=== PATIENT | female | born 1960 | race Caucasian/White ===

== ENCOUNTER 2023-03-08 12:41 | Emergency (ER) | payer OTHER, SELFPAY ==
[2023-03-08 12:44] VITALS: BP 130/89; PULSE 75; RESP 18; TEMP 36.6; O2SAT 95; BMI 27.4
--- NOTE | 2023-03-08 13:09 | EXP.UTC ---
Discharge Plan Disposition Patient Disposition: Home, Self-Care Condition: Good Prescriptions Prescriptions: New cephalexin 500 mg capsule 500 mg PO QID Qty: 40 0RF mupirocin 2 % ointment 1 applic topical TID 7 Days Qty: 15 0RF Referrals Follow up/Referrals: Sammy Mendosa MD [Primary Care Provider] - See instructions Activity Restrictions/Add. Instructions Additional Instructions/Restrictions: Keep the affected area clean and dry. Follow up with your regular doctor. Take the antibiotics as directed and apply the topical antibiotics as directed. Apply warm wet compresses to the affected area three or four times per day. GO TO THE ER FOR ANY WORSENING SYMPTOMS Clinical Impressions Clinical Impression: Abscess of skin Instructions Patient Instructions: Boil Discharge ED Provider: Seven Adkins [facility] General Stated complaint: Lump on L Leg Time Seen by Provider: 03/08/23 13:08 History of Present Illness Provider Complaint: She states that she has had a tender swollen area on the inside of her left thigh for the past 3 days. She denies any fever/chills. Related Data Previous Rx's Medication Instructions Recorded cephalexin 500 mg capsule 500 mg PO QID #40 caps 03/08/23 mupirocin 2 % topical ointment 1 applic topical TID 7 days #15 03/08/23 grams Allergies Allergy/AdvReac Type Severity Reaction Status Date / Time No Known Allergies Allergy Verified 03/08/23 13:11 [facility] Disclaimer: The information contained in this section may have been updated after the patient was seen, as this information can be updated by other users. Social History Smoking Status: Never smoker alcohol intake: never current occupational status: retired Travel in the last 8 weeks: None ROS Obtained: Yes All systems reviewed & no additional complaints except as documented Constitutional Constitutional: Denies chills and Denies fever(s) Eyes Eyes: Denies eye discharge ENT Ears, Nose, Mouth, and Throat: Denies dizziness, Denies otalgia and Denies sore throat Cardiovascular Cardiovascular: Denies chest pain Respiratory Respiratory: Denies shortness of breath, Denies chest congestion, Denies cough, Denies stridor and Denies wheezing Gastrointestinal Gastrointestingal: Denies nausea or vomiting Musculoskeletal Musculoskeletal: Reports system reviewed and no additional complaints, except as documented and Denies arthralgias Integumentary/Breasts Skin/Breast: Reports as per HPI Neurologic Neurologic: Denies dizziness and Denies paresthesias Allergic/Immunologic Allergic/Immunologic: Denies wheezing Physical Exam General General appearance: alert and in no apparent distress Head Head exam: atraumatic, normocephalic and normal inspection Eye Eye exam: Present normal appearance, PERRL and EOMI ENT ENT exam: Present normal exam, normal oropharynx, mucous membranes moist, TM's normal bilaterally and normal external ear exam Neck Neck exam: Present normal inspection, full ROM and trachea midline; Absent meningismus or lymphadenopathy Chest Chest inspection: Present normal inspection and symmetric chest wall rise; Absent tenderness Respiratory Respiratory exam: Present normal lung sounds bilaterally; Absent respiratory distress Cardiovascular Cardiovascular exam: Present regular rate and normal rhythm; Absent JVD Abdominal Exam Abdominal exam: Present soft and normal bowel sounds; Absent distention, tenderness or guarding Extremities Exam Extremities exam: Present normal inspection, full ROM and normal capillary refill; Absent calf tenderness Back Exam Back exam: Present normal inspection; Absent tenderness Neurological Exam Neurological exam: Present alert and oriented X3 Psychiatric Psychiatric exam: Present normal affect and normal mood Skin Skin exam: Present erythema (there is an area of redness that measures 2 cm diameter on her left upper inter thigh. there is no open wound or dr
[2023-03-08 13:45] VITALS: BP 130/89; PULSE 75; RESP 18; TEMP 36.6; O2SAT 95
== END 2023-03-08 13:47 | disposition home or self-care (01) ==
PROVIDERS: Emergency Provider Nurse Practitioner Family; PCP Family Medicine
DX: L02.416 Cutaneous abscess of left lower limb (principal)
CPT/HCPCS: 99204; 99212; G0463

== ENCOUNTER 2024-02-07 15:00 | Outpatient (RCR) | payer MEDICARE, SELFPAY | END 2024-02-16 16:55 | disposition home or self-care (01) | LOC: PT 15:00 | PROVIDERS: Visit Provider Psychiatry & Neurology Neurology | DX: G20.A1 Parkinson's disease without dyskinesia, without mention of fluctuations (principal) | CPT/HCPCS: 97110; 97112; 97163; 97164; 97530 ==

== ENCOUNTER 2024-04-13 13:29 | Emergency (ER) | payer MEDICARE, SELFPAY ==
[2024-04-13 13:46] VITALS: BP 165/88; PULSE 75; RESP 18; TEMP 36.9; O2SAT 96; BMI 27.4
--- NOTE | 2024-04-13 13:50 | ED_ITS ---
Discharge Plan Disposition Patient Disposition: Home, Self-Care Condition: Good Prescriptions Prescriptions: New dextromethorphan polistirex [Delsym 12 hour] 30 mg/5 mL suspension,extended rel 12 hr 10 ml PO Q12H PRN (Reason: cough) Qty: 89 0RF No Action cephalexin 500 mg capsule 500 mg PO QID Qty: 40 0RF mupirocin 2 % ointment 1 applic topical TID 7 Days Qty: 15 0RF Referrals Follow up/Referrals: Provider,Referral, MD [Primary Care Provider] - See instructions Activity Restrictions/Add. Instructions Additional Instructions/Restrictions: *Monitor Temp, Over the counter Motrin or Tylenol as directed/as needed Tylenol every 4 hours and Motrin every 6 hours (as long as your family doctor has told you that you can take it) for fever or pain. and straight to ER if unable to lower temp less than 101.0 after medication given *Warm salt water gargles may help to soothe the throat *Throat Lozenges? *Warm fluids like tea with honey may help to soothe the throat? *Sleep elevated *Humidifier/Vaporizer Follow up IMMEDIATELY for new or worsening symptoms or no Noticeable improvement over the next 48-72 hours. 911 for difficulty breathing or swallowing You were tested for today for Upper Respiratory Panel with COVID19 your test result should be back in the next 24hours, you may check your results on the [facility] [employer] [facility] Clinical Impressions Clinical Impression: Viral syndrome Instructions Patient Instructions: Cough, DI for Viral Syndrome Print Language Print Language: Syriac Discharge ED Provider: Nikkie Schmidt [facility] – [place], [place] HPI General Stated complaint: cough Mode of Arrival: Ambulatory Source of Information: Patient Limitations: No Limitations Time Seen by Provider: 04/13/24 13:50 Description of Symptoms (Recalled from Triage Doc. by RN): Complaint of cough and chest congestion that started yesterday. States she was exposed to COVID and would like to be tested. HEENT Symptoms (Recalled from RN notes): Yes Resp Symptoms (Recalled from RN notes): No Skin Symptoms (Recalled from RN notes): No MS Symptoms (Recalled from RN notes): No Functional Status (Recalled from RN notes): wnl History of Present Illness Provider Complaint: Patient states that she was around someone earlier in the week that tested positive for COVID and then yesterday she started with sympotms, States that she has been having cough and body aches, and chills so today she came in wanting to get tested for COVID Related Data Previous Rx's ?Medication ?Instructions ?Recorded cephalexin 500 mg capsule 500 mg PO QID #40 caps 03/08/23 mupirocin 2 % topical ointment 1 applic topical TID 7 days #15 03/08/23 grams dextromethorphan polistirex 30 10 ml PO Q12H PRN cough #89 mL 04/13/24 mg/5 mL oral susp ext.release 12hr (Delsym 12 hour) Allergies Allergy/AdvReac Type Severity Reaction Status Date / Time iv dye Allergy Uncoded 04/13/24 13:49 Worker's Comp Is this a Worker's Comp case?: No PFSH PFS Disclaimer: The information contained in this section may have been updated after the patient was seen, as this information can be updated by other users. Social History (Updated 03/08/23 @ 14:23 by Seven Adkins APRN) Smoking Status: Never smoker alcohol intake: never current occupational status: retired Travel in the last 8 weeks: None ROS Obtained: Yes All systems reviewed & no additional complaints except as documented and Yes Systems reviewed as appropriate & no additional complaints except as documented Constitutional Constitutional: Reports system reviewed and no additional complaints, except as documented, Reports as per HPI, Reports body ache, Reports chills and Reports headache(s) ENT Ears, Nose, Mouth, and Throat: Reports system reviewed and no additional complaints, except as documented, Reports as per HPI and Reports headache(s) Cardiovascular Cardiovascular: Reports system reviewed and no additional complaints, except as documented and Reports as per HPI Respiratory Respiratory: Reports system reviewed and no additional complaints, except as documented, Reports as per HPI and Reports cough Gastrointestinal Gastrointestingal: Reports system reviewed and no additional complaints, except as documented and as per HPI Neurologic Neurologic: Reports headache(s) Physical Exam General General appearance: alert and in no apparent distress ENT ENT exam: Present mucous membranes moist Expanded ENT Exam Nose exam: Absent sinus tenderness Respiratory Respiratory exam: Present normal lung sounds bilaterally; Absent respiratory distress or wheezes Cardiovascular Cardiovascular exam: Present regular rate, normal rhythm and normal heart sounds Neurological Exam Neurological exam: Present alert, oriented X3 and normal gait Medical Decision Making Zane Inquiry Pt receiving controlled substance: No Zane was queried for this patient: No Vital Signs: 04/13/24 13:46 Temperature 98.4 F Temperature Source Oral Pulse Rate [Radial] 75 Respiratory Rate 18 Blood Pressure [Right Arm] 165/88 H Blood Pressure Mean [Right Arm] 113 Blood Pressure Source [Right Arm] Automatic Cuff Blood Pressure Position [Right Arm] Sitting 02 Sat by Pulse Oximetry 96 Oxygen Delivery Method Room Air Orders (Tests/Meds): ORDERS Category Date Time Status Rapid PCR Covid and Flu A/B Stat Lab 04/13/24 13:44 Ordered
[2024-04-13 13:51] LABS: Influenza A, PCR Not Detected (NotDetected); Influenza B, PCR Not Detected (NotDetected)
[2024-04-13 13:58] VITALS: BP 165/88; PULSE 75; RESP 18; TEMP 36.9; O2SAT 96
[2024-04-13 14:33] LABS: Coronavirus 19, PCR Detected (NotDetected)
== END 2024-04-13 13:59 | disposition home or self-care (01) ==
PROVIDERS: Emergency Provider Nurse Practitioner
DX: U07.1 COVID-19 (principal); R05.9 Cough, unspecified; R68.83 Chills (without fever); M79.18 Myalgia, other site
CPT/HCPCS: 87636; 99212; 99214; G0463

== ENCOUNTER 2024-10-15 09:30 | Outpatient (CLI) | payer MEDICARE, SELFPAY | END 2024-10-15 23:59 | disposition home or self-care (01) | LOC: LAB.DROPOF 10-17 10:24 | PROVIDERS: PCP Family Medicine; Visit Provider Family Medicine | DX: N39.0 Urinary tract infection, site not specified (principal); R39.9 Unspecified symptoms and signs involving the genitourinary system | CPT/HCPCS: 87086; 87088; 87186 ==

== ENCOUNTER 2024-11-21 08:55 | Outpatient (CLI) | payer MEDICARE, SELFPAY ==
[2024-11-21 17:02] LABS: Basophils # 0.1 K/mm3 (0-0.2); Basophils % 1.3 % (0.1-2.0); Eosinophils # 0.3 K/mm3 (0.0-0.4); Eosinophils % 4.7 % (0.1-12.0); Hematocrit 47.5 % (37.0-47.0); Hemoglobin 14.9 g/dL (12.2-16.2); Lymphocytes # 1.5 K/mm3 (0.7-4.5); Lymphocytes % 27.5 % (10-50); Mean Corpuscular HGB Conc 31.4 g/dL (31.8-35.4); Mean Corpuscular Volume 89.3 fl (81-99); Monocytes # 0.3 K/mm3 (0.1-1.0); Monocytes % 5.4 % (1.7-9.3); Neutrophils # 3.3 K/mm3 (1.8-7.8); Neutrophils % 60.9 % (37.0-80.0); Platelet Count 222 K/mm3 (142-424); Red Blood Count 5.32 M/mm3 (4.20-5.40); Red Cell Distribution Width 13.9 % (11.5-17.5); White Blood Count 5.4 K/mm3 (4.8-10.8)
[2024-11-21 17:24] LABS: Alanine Aminotransferase 19 U/L (12-78); Albumin Level 4.2 g/dl (3.5-5.0); Albumin/Globulin Ratio 1.7 (1.1-1.8); Alkaline Phosphatase 102 U/L (38-126); Anion Gap 15.4 mEq/L (5-15); Aspartate Amino Transferase 22 U/L (14-36); Bilirubin,Total 0.6 mg/dl (0.2-1.3); Blood Urea Nitrogen 14 mg/dl (7-17); Calcium 9.3 mg/dl (8.4-10.2); Carbon Dioxide 24 mmol/L (22.0-30.0); Chloride 107 mmol/L (98-107); Chol/HDL Ratio 4.3 (1-3.5); Cholesterol 224 mg/dl (140-200); Estimated Glomerular Filt Rate 100 ml/min (>60); GFR (African American) 121 ML/MIN (>60); Globulin 2.5 g/dL (1.3-3.2); Glucose 98 mg/dl (74-100); HDL Cholesterol 52 mg/dl (40-60); Potassium 4.4 mmoL/L (3.5-5.1); Sodium 142 mmol/L (136-145); Total Protein,Serum 6.7 g/dl (6.3-8.2); Triglycerides 129 mg/dl (30-150); VLDL Cholesterol 26 mg/dL (0-40)
[2024-11-21 17:35] LABS: Direct LDL Cholesterol 127.81 mg/dL (100-129)
[2024-11-21 17:54] LABS: Thyroid Stimulating Hormone 1.41 uIU/mL (0.465-4.68)
== END 2024-11-21 23:59 | disposition home or self-care (01) ==
LOC: LAB.DROPOF 11-22 11:03
PROVIDERS: PCP Family Medicine; Visit Provider Family Medicine
DX: G20.A1 Parkinson's disease without dyskinesia, without mention of fluctuations (principal); Z13.29 Encounter for screening for other suspected endocrine disorder; Z13.220 Encounter for screening for lipoid disorders
CPT/HCPCS: 80053; 80061; 84443; 85025

== ENCOUNTER 2025-01-15 14:53 | Outpatient (CLI) | payer MEDICARE, SELFPAY ==
--- NOTE | 2025-01-15 14:57 | XR_ITS ---
FINAL REPORT CLINICAL HISTORY: Constipation COMPARISON: None FINDINGS: 2 views of the abdomen demonstrate a nonobstructive bowel gas pattern. There is no significant stool burden. There are no abnormally dilated loops of small bowel. There is no free air. There are no abnormal calcifications. IMPRESSION: No acute process. Reviewed, Interpreted and Dictated by Juanita Harper MD Transcribed by Destiny Potter Authenticated and [facility]
== END 2025-01-15 23:59 | disposition home or self-care (01) ==
LOC: RAD 14:53
PROVIDERS: PCP Family Medicine; Visit Provider Nurse Practitioner Family
DX: K59.00 Constipation, unspecified (principal)
CPT/HCPCS: 74019

== ENCOUNTER 2025-02-13 08:24 | Outpatient (CLI) | payer MEDICARE, SELFPAY ==
[2025-02-13 16:55] LABS: Basophils # 0.1 K/mm3 (0-0.2); Eosinophils # 0.2 Kmm3 (0.0-0.4); Hematocrit 45.5 % (37.0-47.0); Hemoglobin 14.8 g/dL (12.2-16.2); Immature Granulocytes # 0.04 10^3uL; Immature Granulocytes % 0.7 %; Lymphocytes # 1.6 K/mm3 (0.7-4.5); Lymphocytes % 26.5 % (10-50); Mean Corpuscular HGB Conc 32.5 g/dL (31.8-35.4); Mean Corpuscular Hemoglobin 28.7 pg (27.0-31.2); Mean Corpuscular Volume 88.3 fl (81-99); Mean Platelet Volume 10.5 fl (7.4-10.4); Monocytes # 0.4 K/mm3 (0.1-1.0); Monocytes % 6.6 % (1.7-9.3); Neutrophils # 3.8 K/mm3 (1.8-7.8); Neutrophils % 62.2 % (37.0-80.0); Nucleated Red Blood Cells # 0 10^3/uL; Nucleated Red Blood Cells % 0 %; Platelet Count 248 K/mm3 (142-424); Red Blood Count 5.15 M/mm3 (4.20-5.40); Red Cell Distribution Width 13.2 % (11.5-17.5); Red Cell Distribution Width-SD 42.3 fL
[2025-02-13 17:24] LABS: Albumin Level 4.3 g/dl (3.5-5.0); Chloride 107 mmol/L (98-107); Potassium 4.7 mmoL/L (3.5-5.1); Sodium 141 mmol/L (136-145)
[2025-02-13 17:26] LABS: Blood Urea Nitrogen 15 mg/dl (7-17); Estimated Glomerular Filt Rate 100 ml/min (>60); GFR (African American) 121 ML/MIN (>60)
[2025-02-13 17:27] LABS: Alanine Aminotransferase 19 U/L (12-78); Albumin/Globulin Ratio 1.8 (1.1-1.8); Alkaline Phosphatase 112 U/L (38-126); Anion Gap 11.7 mEq/L (5-15); Aspartate Amino Transferase 26 U/L (14-36); Bilirubin,Total 0.3 mg/dl (0.2-1.3); Calcium 9.1 mg/dl (8.4-10.2); Carbon Dioxide 27 mmol/L (22.0-30.0); Chol/HDL Ratio 4.4 (1-3.5); Cholesterol 223 mg/dl (140-200); Globulin 2.4 g/dL (1.3-3.2); Glucose 98 mg/dl (74-100); HDL Cholesterol 51 mg/dl (40-60); Total Protein,Serum 6.7 g/dl (6.3-8.2); Triglycerides 126 mg/dl (30-150); VLDL Cholesterol 25 mg/dL (0-40)
[2025-02-13 18:09] LABS: HIV Combo NEGATIVE (Negative)
[2025-02-13 18:16] LABS: Hepatitis C Ab Qual. W/ RFX NEGATIVE (Negative)
--- OUTSIDE RECORDS SUMMARY | 2025-02-14 09:55 | XMS_ITS | Data Portability ---
Author Organization [place] - [facility] [place] Address [address] [place] [address] Care Team Providers Care Towel Sorter Name Role Phone HAILEE SANCHEZ Primary Care Provider [phone] Assessment Encounter Date Assessment Date Assessment LastModified by Organization Details LastModified Time 11/03/2023 11/03/2023 -Azilect 0.5 mg daily -SInemet 25/100 mg titrate up as directed to TID -PT eval and treat for PD -recommend referral for HECTOR -reviewed the diagnosis and treatment of Parkinson's disease -f/u as scheduled [email or web address] [id number] Not available 11/03/2023 10:13:34 Plan of Treatment Reminders Order Date Submit Date Provider Last Modified By Organization Details Last Modified Time Details Appointments Medicatio n Managemen t 30 2024 02:00P BHARAT KING Not available Not available Not available Lab vitamin D, 25-hydrox y, total, serum 2023 024 [email or web address] [facility] ([facility]), [address], [address], 10/21/2023 07:28:43 folate, serum 2023 024 [facility] ([facility]), [address] [place] [address] [place], [address], 10/14/2023 17:39:41 vitamin B12 + folate, serum or blood [address] [facility], [address], [address], 09/02/2023 06:58:36 TSH + free T4, serum [address] [facility], [address], [address], 09/02/2023 06:58:36 vitamin D, 25-hydrox y, total, serum [address] [facility], [address] [place], [address], 09/02/2023 06:58:36 CMP, serum or plasma 2022 023 [facility], [address], [address], 08/26/2023 19:00:58 magnesium , serum or plasma [address] [facility] Registration, [address], [address], 09/02/2023 06:58:36 CBC w/ auto diff 2022 023 [facility], [address], [address], 08/26/2023 18:54:45 HbA1c (hemoglob in A1c), blood [address] [facility], [address], [address], 09/02/2023 06:58:36 lipid panel, serum [address] [facility], [address], [address], 09/02/2023 06:58:[address] referral - [facility] 2023 024 [email or web address] Neurology Updated, [address] [facility], [address], [place], [address], 11/14/2023 11:40:20 physical therapist referral - for lumbar, cervical and bilateral hip pain APPT -10/25/23 @ 1 2023 024 [email or web address] [facility], [address] [facility], [place], [address], 10/24/2023 07:14:[address] referral 2023 024 FAUSTINO Neal MD, [address], [place], [address], 10/14/2023 15:27:25 Procedures None recorded. Surgeries None recorded. Imaging XR, cervical spine [address], [address] [place] [address], [phone], 10/14/2023 15:15:22 XR, lumbar spine [address], [address] [place] [address], [phone], 10/14/2023 15:15:00 XR, hip, unilatera l [address], [address] [place] [address], [phone], 10/14/2023 15:15:17 XR, hip, unilatera l [address], [address] [place] [address], [phone], 10/14/2023 15:15:08 MRI, head, w/o contrast 2022 023 [email or web address] [facility] - Centralized Scheduling, [address] , [place], [address], 09/02/2023 06:58:25 Medication Orders carbidopa 25 mg-levodo pa 100 mg tablet 2023 024 FAUSTINO [facility], [address] [place], [address], 11/03/2023 14:30:31 Azilect 0.5 mg tablet 2023 024 FAUSTINO [facility], [address] [place], [address], 11/04/2023 10:48:23 Patient TargetsNo targets recorded. Patient Instructions Encounter Date Encounter Id Patient Instructions Last Modified By Organization Details Last Modified Time 08/26/2023 [id number] Plan: 1. Recommended blood work for evaluation of the tremor. 2. Recommended MRI of her head without contrast. 3. Recommended punch biopsy to pre performed of skin lesions. 4. Recommended podiatry referral at a later date for her toe. 5. Advised patient to decrease Zoloft dose to see if this would help with the tremor per her psychiatrist recommendations. Cautioned patient could worsen symptoms temporarily but we do need to see if this is the cause of the tremor. 6. Follow-up in 2 weeks for recheck will perform punch biopsy at that visit. Patient was advised to return to the clinic sooner if needed. [email or web address] Not available 08/26/2023 10:17:04 09/09/2023 [id number] Plan: 1. Reviewe d blood work with her patient has already been started on supplements patient is going to continue with those and come back here in a couple weeks for punch biopsy and MRI results. Patient was advised to return to the clinic sooner if needed. [email or web address] Not available 09/09/2023 15:12:27 10/14/2023 [id number] Plan: 1. X-ray o f cervical spine obtained today which showed some significant degeneration of spine for preliminary report. 2. Reviewed MRI of head which showed no acute findings recommended her to see neurology referral started today. 3. Reviewed blood work with her today. Recommended recheck of certain labs today. 4. X-ray of left hip today which showed mild osteoarthritis no other acute findings. As preliminary report. 5. X-ray of right hip obtained today which showed osteoarthritis without acute findings as preliminary report. 6. X-ray of lumbar spine obtained today which showed degeneration. 7. Recommended patient to try physical therapy patient is agreeable. 8. Will follow up with her in 1 month for recheck sooner if needed. [email or web address] Not available 10/16/2023 12:47:29 11/09/2023 [id number] Plan: 1. referra l to neurologist started today. 2. Advised patient to stay on medications prescribed her at this time patient can take MiraLax as needed for constipation. Patient did get some handouts from the pharmacy she is going to bring by for me to look at as far as medication she was started on. 3. she has a lot of questions about the Parkinsons what stage she is in of Parkinsons disease. I think it would be best for her to talk to specialist about this and they can give her a lot more insight into these questions patient has. 4. Follow-up in 3 months sooner if needed. [email or web address] Not available 11/09/2023 15:08:54 Reason for Referral Neurologist Referral for Aaron mor Referring Physician: [facility], Encounter Date: 10/14/2023 Physical Therapist Referral for Neck pain for lumbar, cervical and bilateral hip pain APPT -10/25/23 @ 1 Referring Physician: [facility], Encounter Date: 10/14/2023 Neurologist Referral for Par kinson's disease [facility] Referring Physician: [facility], Encounter Date: 11/09/2023 Results Created Date Observation Date Name Description Value Unit Range Abnormal Flag Note LastModifiedBy Organization Detail LastModifiedTime 08/26/20 23 08/26/2023 HEMOG LOBIN A1C hemoglobin A1C 5.7 % 4.3-6. 4 Not Available [facility] (Lab) [address] , [place], [address], 08/26/2023 18:54:44 08/26/20 23 08/26/2023 CBC WITH AUTO DIFF WBC 5.1 10 4.5-11 .5 Not Available [facility] (Lab) [address], [address], 08/26/2023 18:54:45 08/26/20 23 08/26/2023 CBC WITH AUTO DIFF RBC 5.36 10 4.00-5 .40 Not Available [facility] (Lab) [address], [address], 08/26/2023 18:54:45 08/26/20 23 08/26/2023 CBC WITH AUTO DIFF hemoglobin 15.6 g/dL 12.0-1 5.0 high Not Available [facility] (Lab) [address] [place], [address], 08/26/2023 18:54:45 08/26/20 23 08/26/2023 CBC WITH AUTO DIFF hematocrit 47.3 % 35.0-4 9.0 Not Available [facility] (Lab) [address], [address], 08/26/2023 18:54:45 08/26/20 23 08/26/2023 CBC WITH AUTO DIFF MCV 88.2 fL 80-100 Not Available [facility] (Lab) [address], [address], 08/26/2023 18:54:45 08/26/20 23 08/26/2023 CBC WITH AUTO DIFF MCH 29.1 pg 26-32 Not Available [facility] (Lab) [address], [address], 08/26/2023 18:54:45 08/26/20 23 08/26/2023 CBC WITH AUTO DIFF MCHC 33.0 g/dL 32-36 Not Available [facility] (Lab) [address], [address], 08/26/2023 18:54:45 08/26/20 23 08/26/2023 CBC WITH AUTO DIFF RDW 13.2 % 11.5-1 4.5 Not Available [facility] (Lab) [address], [address], 08/26/2023 18:54:45 08/26/20 23 08/26/2023 CBC WITH AUTO DIFF platelet count 321 10 150-45 0 Not Available [facility] (Lab) [address], [address], 08/26/2023 18:54:45 08/26/20 23 08/26/2023 CBC WITH AUTO DIFF mean platelet volume 10.0 fL 6.8-10 .2 Not Available [facility] (Lab) [address], [address], 08/26/2023 18:54:45 08/26/20 23 08/26/2023 CBC WITH AUTO DIFF manual differential NOT INDICA BRITTNEY Not Available [facility] (Lab) [address], [address], 08/26/2023 18:54:45 08/26/20 23 08/26/2023 CBC WITH AUTO DIFF ne% 59.3 % 50-70 Not Available [facility] (Lab) [address], [address], 08/26/2023 18:54:45 08/26/20 23 08/26/2023 CBC WITH AUTO DIFF lymphs 30.8 % 18-42 Not Available [facility] (Lab) [address], [address], 08/26/2023 18:54:45 08/26/20 23 08/26/2023 CBC WITH AUTO DIFF MO% 6.5 % 2-11 Not Available [facility] (Lab) [address], [address], 08/26/2023 18:54:45 08/26/20 23 08/26/2023 CBC WITH AUTO DIFF eo% 2.4 % 1-3 Not Available [facility] (Lab) [address], [address], 08/26/2023 18:54:45 08/26/20 23 08/26/2023 CBC WITH AUTO DIFF ba% 1.0 % 0.0-2. 0 Not Available [facility] (Lab) [address], [address], 08/26/2023 18:54:45 08/26/20 23 08/26/2023 CBC WITH AUTO DIFF neutrophils (absolute) 3.0 K/uL 2.0-6. 9 Not Available [facility] (Lab) [address], [address], 08/26/2023 18:54:45 08/26/20 23 08/26/2023 CBC WITH AUTO DIFF lymphocytes (absolute) 1.6 K/uL 0.6-3. 4 Not Available [facility] (Lab) [address], [address], 08/26/2023 18:54:45 08/26/20 23 08/26/2023 CBC WITH AUTO DIFF monocytes (absolute) 0.3 K/uL 0.0-0. 9 Not Available [facility] (Lab) [address], [address], 08/26/2023 18:54:45 08/26/20 23 08/26/2023 CBC WITH AUTO DIFF eosinophils (absolute) 0.1 K/uL 0.0-0. 7 Not Available [facility] (Lab) [address], [address], 08/26/2023 18:54:45 08/26/20 23 08/26/2023 CBC WITH AUTO DIFF basophils (absolute) 0.1 K/uL 0.0-0. 2 Not Available [facility] (Lab) [address], [address], 08/26/2023 18:54:45 08/26/20 23 08/26/2023 COMPR EHENS LUIS METAB OLIC PANEL sodium 136 mmol/ L 136-14 5 Not Available [facility] (Lab) [address] [place], [address], 08/26/2023 19:00:58 08/26/20 23 08/26/2023 COMPR EHENS LUIS METAB OLIC PANEL potassium 4.2 mmol/ L 3.5-5. 1 Not Available [facility] (Lab) [address] [place], [address], 08/26/2023 19:00:58 08/26/20 23 08/26/2023 COMPR EHENS LUIS METAB OLIC PANEL chloride 99 mmol/ L 98.0-1 07.0 Not Available [facility] (Lab) [address], [address], 08/26/2023 19:00:58 08/26/20 23 08/26/2023 COMPR EHENS LUIS METAB OLIC PANEL total CO2 30 mmol/ L 21-32 Not Available [facility] (Lab) [address], [address], 08/26/2023 19:00:58 08/26/20 23 08/26/2023 COMPR EHENS LUIS METAB OLIC PANEL anion gap 11.2 mmol/ L 5.0-15 .0 Not Available [facility] (Lab) [address], [address], 08/26/2023 19:00:58 08/26/20 23 08/26/2023 COMPR EHENS LUIS METAB OLIC PANEL glucose 103 mg/dL 70-120 Not Available [facility] (Lab) [address], [address], 08/26/2023 19:00:58 08/26/20 23 08/26/2023 COMPR EHENS LUIS METAB OLIC PANEL BUN 14 mg/dL 7-18 Not Available [facility] (Lab) [address], [address], 08/26/2023 19:00:58 08/26/20 23 08/26/2023 COMPR EHENS LUIS METAB OLIC PANEL creatinine 0.8 mg/dL 0.6-1. 0 Not Available [facility] (Lab) [address], [address], 08/26/2023 19:00:58 08/26/20 23 08/26/2023 COMPR EHENS LUIS METAB OLIC PANEL BUN/creatini ne ratio 17.5 ratio 9-21 Not Available [facility] (Lab) [address], [address], 08/26/2023 19:00:58 08/26/20 23 08/26/2023 COMPR EHENS LUIS METAB OLIC PANEL estimated glom filtration rate >60 mL/mi n 60.0- Not Available [facility] (Lab) [address], [address], 08/26/2023 19:00:58 08/26/20 23 08/26/2023 COMPR EHENS LUIS METAB OLIC PANEL calcium 9.1 mg/dL 8.6-9. 8 Not Available [facility] (Lab) [address], [address], 08/26/2023 19:00:58 08/26/20 23 08/26/2023 COMPR EHENS LUIS METAB OLIC PANEL bilirubin, total 0.4 mg/dL 0.2-1. 0 USE OF THIS ASSAY IS NOT RECOM TIMO D FOR PATIE NTS UNDER GOING TREAT MENT WITH ELTRO MBOPA G DUE TO THE POTEN TIAL FOR FALSE LY ELEVA BRITTNEY RESUL TS. Not Available [facility] (Lab) [address], [address], 08/26/2023 19:00:58 08/26/20 23 08/26/2023 COMPR EHENS LUIS METAB OLIC PANEL AST (SGOT) 13 IU/L 15-37 low Not Available [facility] (Lab) [address], [address], 08/26/2023 19:00:58 08/26/20 23 08/26/2023 COMPR EHENS LUIS METAB OLIC PANEL ALT (SGPT) 22 IU/L 12-78 Not Available [facility] (Lab) [address], [address], 08/26/2023 19:00:58 08/26/20 23 08/26/2023 COMPR EHENS LUIS METAB OLIC PANEL alk phos 123 IU/L 54-369 Not Available [facility] (Lab) [address], [address], 08/26/2023 19:00:58 08/26/20 23 08/26/2023 COMPR EHENS LUIS METAB OLIC PANEL total protein 7.7 g/dL 6.4-8. 2 Not Available [facility] (Lab) [address], [address], 08/26/2023 19:00:58 08/26/20 23 08/26/2023 COMPR EHENS LUIS METAB OLIC PANEL albumin 4.1 g/dL 3.4-5. 0 Not Available [facility] (Lab) [address], [address], 08/26/2023 19:00:58 08/26/20 23 08/26/2023 COMPR EHENS LUIS METAB OLIC PANEL globulin 3.6 g/dL 1.3-3. 5 high Not Available [facility] (Lab) [address], [address], 08/26/2023 19:00:58 08/26/20 23 08/26/2023 COMPR EHENS LUIS METAB OLIC PANEL alb/glob ratio 1.1 ratio 1.0-3. 9 Not Available [facility] (Lab) [address], [address], 08/26/2023 19:00:58 08/26/20 23 08/26/2023 COMPR EHENS LUIS METAB OLIC PANEL osmolality, calculated 273 mOsm/ kg 272-29 5 Not Available [facility] (Lab) [address], [address], 08/26/2023 19:00:58 08/26/20 23 08/26/2023 LIPID PANEL triglyceride s 77 mg/dL 1-150 Not Available [facility] (Lab) [address], [address], 08/26/2023 19:02:00 08/26/20 23 08/26/2023 LIPID PANEL cholesterol 226 mg/dL 0-200 high Not Available [facility] (Lab) [address], [address], 08/26/2023 19:02:00 08/26/20 23 08/26/2023 LIPID PANEL HDL chol 66 mg/dL 35-60 high Not Available [facility] (Lab) [address], [address], 08/26/2023 19:02:00 08/26/20 23 08/26/2023 LIPID PANEL chol/HDL ratio 3 -4.44 Not Available [facility] (Lab) [address], [address], 08/26/2023 19:02:00 08/26/20 23 08/26/2023 LIPID PANEL LDL (calculated) 145 mg/dL -130 high Not Available [facility] (Lab) [address], [address], 08/26/2023 19:02:00 08/26/20 23 08/26/2023 FREE T4 (FREE THYRO XINE) free T4 1.06 NG/dL 0.76-1 .46 Not Available [facility] (Lab) [address], [address], 08/26/2023 19:02:02 08/26/20 23 08/26/2023 TSH TSH 1.13 uIU/m L 0.3600 -3.740 0 Not Available [facility] (Lab) [address], [address], 08/26/2023 19:02:03 08/26/20 23 08/26/2023 MAGNE SIUM magnesium 2.1 mg/dL 1.8-2. 4 Not Available [facility] (Lab) [address], [address], 08/26/2023 19:02:04 08/26/20 23 08/26/2023 VITAM IN B12 vitamin B12 490 pg/mL 193-98 6 Not Available [facility] (Lab) [address] [place] [address] [place], [address], 08/26/2023 19:10:25 08/26/20 23 08/26/2023 FOLIC ACID folic acid 6.8 NG/mL 8.6-58 .9 low Not Available [facility] (Lab) [address], [address], 08/26/2023 19:10:26 08/26/20 23 08/31/2023 VITAM IN D, 25-HY DROXY vitamin D, 25-hydroxy 26.9 NG/mL 30.0-1 00.0 low Vitam in D defic iency has been defin ed by the Insti tute of Medic ine and an Endoc rine Socie ty pract ice guide line as a level of serum 25-OH vitam in D less than 20 ng/mL (1,2) . The Endoc rine Socie ty went on to furth er defin e vitam in D insuf ficie ncy as a level betwe en 21 and 29 ng/mL (2). 1. IOM (Inst itute of Medic ine). 2010. Dieta ry refer ence intak es for calci um and D. Washi ngton [place]: The [employer] . 2. Angelia ABEL, [place] PRABHAKAR, Bisch off-F errar i RUSHING, et al. Evalu ation , treat ment, and preve ntion of vitam in D defic iency : an Endoc rine Socie ty clini luther pract ice guide line. JCEM. 2010; 96(7) :1911 -30. Perfo rmed at: CB - [facility] [address] [id number] Lab Direc tor: Juan Manuel umaña PhD, Phone : [phone] Not Available [facility] (Lab) [address] [place] [address] [place], [address], 08/31/2023 08:16:11 10/14/19 24 10/14/2023 FOLIC ACID folic acid 16.1 NG/mL 8.6-58 .9 Not Available [facility] (Lab) [address] [place] [address] [place], [address], 10/14/2023 17:39:41 10/14/19 24 10/16/2023 VITAM IN D, 25-HY DROXY vitamin D, 25-hydroxy 33.4 NG/mL 30.0-1 00.0 Vitam in D defic iency has been defin ed by the Insti tute of Medic ine and an Endoc rine Socie ty pract ice guide line as a level of serum 25-OH vitam in D less than 20 ng/mL (1,2) . The Endoc rine Socie ty went on to furth er defin e vitam in D insuf ficie ncy as a level betwe en 21 and 29 ng/mL (2). 1. IOM (Inst itute of Medic ine). 2009. Dieta ry refer ence marjorie es for calci um and D. Agueda victor [place]: The [employer] . 2. Angelia ABEL, [place] PRABHAKAR, Bisch off-F errar i СЕРГЕЙ, et al. Evalu ation , treat ment, and preve ntion of vitam in D defic iency : an Endoc rine Socie ty clini luther pract ice guide line. JCEM. 2010; 96(7) :1911 -30. Perfo rmed at: [facility] - [facility] [place] [facility] [address] [facility], [place] [address] Lab Direc tor: Juan Manuel umaña PhD, Phone : [phone] Not Available [facility] (Lab) [address] , [place], [address], 10/16/2023 07:10:05 10/07/19 24 10/07/2023 [facility] [address] [place] [address] Phone: Fax: Name: MOE RANDALL Exam Date: 10/07/19 : [birth year] Age 62 years Gender : F Access ion: [id number] Physic willem: BEVERLEY SANCHEZ [facility] HSV: Outpat ient Exam: MRI BRAIN WO EXAMIN ATION: MRI Brain w/o Contra st INDICA TION: TREMOR TECHNI QUE:i? ?i??Mu ltipla rk multis equenc e MRI of the brain was perfor med withou t contra st. COMPAR ISONS: i??i?? None. FINDIN GS:i?? i?? Age-re lated approp riate parenc hymal volume loss.i ??i??V entric les are normal in size and config uratio n.i??i ??Ther e is no abnorm al signal on diffus ion weight ed images .i??i? ?Likel y change s of chroni c microa ngiopa thy noted in the suprat entori al white matter There is no mass effect and the basal cister ns are patent . Marrow signal the clivus and calvar ium is normal .i??i? ?Circl e of Salazar flow voids are mainta ined.i ??i??N o signif icant abnorm al sinona mundo or tempor al bone fluid is identi fied. IMPRES SERAFIN: No acute intrac ranial abnorm ality. i??i?? Chroni c-appe aring findin gs as discus sed Electr onical ly Signed by: Joe Gonzalez MD Dictat ed By: Joe Gonzalez Transc ribed By: Transc ribed On: 10/07/19 4:33 PM Electr onical ly signed by: Joe Gonzalez 10/07/19 Thank you for referr MOE Heller to [facility]. Legall y authen ticate d by SHANTEL Mustafa 10-07 16:33: 40 CC'ed Logic: Orderi ng Provid er: DANIEL AUSTIN CC Provid er: DANIEL AUSTIN Attend ing Provid er: DANIEL AUSTIN Referr ing Provid er: DANIEL AUSTIN Admitt ing Provid er: DANIEL AUSTIN [email or web address] [facility] ([facility]) [address] [place] [address], [place], [address], 10/12/2023 10:39:41 10/14/19 24 XR, lumba r spine No observ ation record ed. [address], [address], 10/14/2023 14:43:00 10/14/19 24 XR, hip, unila teral No observ ation record ed. [address], [address], 10/14/2023 14:43:39 10/14/19 24 XR, hip, unila teral No observ ation record ed. [address], [address], 10/14/2023 14:43:43 10/14/19 24 XR, cervi luther spine No observ ation record ed. [address], [address], 10/14/2023 14:47:40 10/17/19 24 10/14/2023 DEXA No observ ation record ed. Not Available 2023 08:57:00 Result Notes Documentation Provider Name and Address Organization Details Recorded Time Mri, Brain, W/o Contrast : [place] [address] [place] [address] Name: MOE RANDALL Exam Date: 10/07/2023 : 1960 Age 62 years Gender: F Physician: HAILEE SANCHEZ Facility: [facility] HSV: Outpatient Exam: MRI BRAIN WO EXAMINATION: MRI Brain w/o Contrast INDICATION: TREMOR TECHNIQUE:i??i??Multiplana r multisequence MRI of the brain was performed without contrast. COMPARISONS:i??i??None. FINDINGS:i??i?? Age-related appropriate parenchymal volume loss.i??i??Ventricles are normal in size and configuration.i??i??There is no abnormal signal on diffusion weighted images.i??i??Likely changes of chronic microangiopathy noted in the supratentorial white matter There is no mass effect and the basal cisterns are patent. Marrow signal the clivus and calvarium is normal.i??i??[place] of Salazar flow voids are maintained.i??i??No significant abnormal sinonasal or temporal bone fluid is identified. IMPRESSION: No acute intracranial abnormality.i??i??Chronic- appearing findings as discussed Electronically Signed by: Joe Gonzalez MD Dictated By: Joe Gonzalez Transcribed By: Transcribed On: 10/07/2023 4:33 PM Electronically signed by: Joe Gonzalez 10/07/2023 Thank you for referring MOE RANDALL to [facility]. Legally authenticated by SHANTEL Mustafa 2023-10-07 16:33:40 CC'ed Logic: Ordering Provider: DANIEL BOWDEN CC Provider: DANIEL BOWDEN Attending Provider: DANIEL BOWDEN Referring Provider: DANIEL BOWDEN Admitting Provider: DANIEL gibbons, [place] - [facility] [place] [facility] [place] 10/12/2023 10:39:42 Problems Name Problem SNOMED Code Status Onset Date Resolution Date Notes Provider Name and Address Organization Details Recorded Time Pain in left foot 7436972461458 07 Active 2022 DAVON DE SANTIAGO [employer],[address], [place], [address] , [place] [facility] - [facility] & [place] 3 14:42:03 Callosity on toe 955738158 Active 2022 DAVON DE SANTIAGO [employer],[address], [place], [address] , [place] [facility] - [facility] & [place] 3 14:42:16 Hammer toe 791068540 Active 2022 DAVON DE SANTIAGO [employer],[address], [place], [address] , [place] [facility] - [facility] & [place] 3 14:06:27 Tremor 84895190 Active 2022 Hailee Sanchez PA-C [facility] [address], [place], [address] , [place] [facility] - [facility] & [place] 3 10:12:23 Skin lesion 41123650 Active 2022 Hailee Sanchez PA-C [facility] [address], [place], [address] , [place] [facility] - [facility] & [place] 3 10:13:17 Pain of toe of left foot 9802607931856 08 Active 2022 Hailee Sanchez PA-C [facility] [address], [place], [address] , [place] - [place] & [place] 3 10:13:23 Generalize d anxiety disorder 73291267 Active 2022 Hailee Sanchez PA-C [facility] [address], [place], [address] , [place] [facility] & [place] 3 10:13:35 Vitamin D deficiency 59071030 Active 2023 Hailee Sanchez PA-C [employer],[address], [place], [address] , [place] [facility] - [place] & [place] 4 12:45:34 Folic acid deficiency 998015954 Active 2023 Hailee Sanchez PA-C [employer],[address], [place], [address] , [place] [facility] & [place] 4 12:45:47 Low back pain 763946704 Active 2023 Hailee Sanchez PA-C [employer],[address], [place], [address] , [place] - [facility] - [place] & [place] 4 14:40:55 Pain of bilateral hip joints 5477824188116 9100 Active 2023 Hailee Sanchez PA-C [employer],[address], [place], [address] , [place] [facility] - [place] & [place] 4 14:42:06 Pain of right hip joint 0517518073485 02 Active 2023 Hailee Sanchez PA-C [address], [place], [address] , [place] & [place] 4 14:43:32 Pain of left hip joint 2854478981713 00 Active 2023 Hailee Sanchez PA-C [employer],[address], [place], [address] , [place] - [place] & [place] 4 14:43:36 Osteoporos is 64916068 Active 2023 Hailee Sanchez PA-C [employer],[address], [place], [address] , [place] [facility] - [place] & [place] 4 14:44:25 Neck pain 92753307 Active 2023 Not Available [employer] 14:48:10 Parkinson' s disease 93379789 Active 2023 Hailee Sanchez PA-C [address] [place] [address],[address], [address] , [place] - [facility] - [facility] & [place] 13:56:52 Problem Notes None recorded. Procedures Surgical History Date Name Laterality Status Provider Name and Address Organization Details Recorded Time 09/27/19 24 completed Penny Albert [place] - [facility] - [facility] & [place] 11/09/2023 13:41:56 09/27/19 24 Date of Last Pap Smear completed Penny [place] - [facility] - [place] & [place] 11/09/2023 13:41:36 08/29/19 24 Most Recent Bone Density completed Penny Albert [place] - [facility] - [facility] [place] 11/09/2023 13:41:56 06/29/20 22 Date of Last Colonoscopy completed Martha GARCIA - [facility] - [place] & [place] 09/08/2022 14:18:51 08/29/19 21 Colonoscopy completed Penny GARCIA - [facility] - [facility] & [place] 11/09/2023 13:41:44 08/29/19 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 Procedure Notes None recorded. Medical Equipment None Reported. Allergies No known drug allergies Medications Name Sig Start Date Stop Date Status Note LastModified by Organization Details LastModified Time amoxicillin 500 mg capsule TAKE 1 CAPSULE BY MOUTH 4 TIMES DAILY UNTIL GONE 09/08 completed Not Available Not Available Not Available doxycycline hyclate 100 mg capsule TAKE 1 CAPSULE BY MOUTH TWICE DAILY FOR 7 DAYS active Not Available Not Available No t Available azithromyci n 250 mg tablet TAKE 2 TABLETS BY MOUTH FOR 1 DAY THEN TAKE 1 TABLET BY MOUTH DAILY FOR 4 DAYS active Not Available Not Available No t Available fluconazole 150 mg tablet TAKE 1 TABLET BY MOUTH ONCE DAILY FOR 3 DAYS FOR YEAST INFECTION 08/26 completed Not Available Not Available Not Available benzonatate 200 mg capsule TAKE 1 CAPSULE BY MOUTH THREE TIMES DAILY FOR COUGH active Not Available Not Available No t Available minocycline 100 mg capsule active Not Available Not Available Not Available prednisone 20 mg tablet TAKE 1 TABLET BY MOUTH TWICE DAILY FOR 5 DAYS active Not Available Not Available No t Available sertraline 100 mg tablet TAKE 1 TABLET BY MOUTH ONCE DAILY IN THE MORNING FOR ANXIETY FOR 30 DAYS active Not Available Not Available No t Available folic acid 400 mcg tablet 11/07 completed Not Available Not Available Not Available sulfamethox azole 800 mg-trimetho prim 160 mg tablet TAKE 1 TABLET BY MOUTH TWICE DAILY active Not Available Not Available No t Available amoxicillin 500 mg tablet active Not Available Not Available Not Available prednisone 10 mg tablets in a dose pack TAKE TABLETS BY MOUTH DIRECTED ON PACKAGE FOR 6 DAYS active Not Available Not Available No t Available estradiol 1 mg tablet 11/02 completed Not Available Not Available Not Available benzonatate 100 mg capsule 09/08 completed Not Available Not Available Not Available hydrocodone 7.5 mg-acetamin ophen 325 mg tablet TAKE 1 TABLET BY MOUTH EVERY 6 HOURS NEEDED 09/08 completed Not Available Not Available Not Available cephalexin 500 mg capsule TAKE 1 CAPSULE BY MOUTH 4 TIMES DAILY 08/26 completed Not Available Not Available Not Available pantoprazol e 40 mg tablet,josue yed release TAKE 1 TABLET 1 TIME EACH DAY active Not Available Not Available No t Available promethazin e 25 mg tablet active Not Available Not Available Not Available betamethaso ne dipropionat e 0.05 % topical cream active Not Available Not Available Not Available diclofenac sodium 75 mg tablet,josue yed release Take 1 tablet twice a day by oral route for 30 days. 08/26 completed Not Available Not Available Not Available mupirocin 2 % topical ointment APPLY OINTMENT TOPICALLY THREE TIMES DAILY FOR 7 DAYS 08/26 completed Not Available Not Available Not Available estradiol 0.01% (0.1 mg/gram) vaginal cream INSERT 1 GRAM VAGINALLY TWICE A WEEK FOR VAGINAL ATROPHY/D RYNESS 08/26 completed Not Available Not Available Not Available trihexyphen idyl 2 mg tablet active Not Available Not Available Not Available carbidopa 25 mg-levodopa 100 mg tablet 1/2 tab po daily x 1 week, then 1/2 tab BID x 1 week, then 1/2 tab TID x 1 week, then one PO TID active Not Available Not Available No t Available hydrocortis one 2.5 % topical ointment APPLY OINTMENT TOPICALLY TO AFFECTED AREA TWICE DAILY FOR 5 DAYS, THEN DAILY FOR 5 DAYS, THEN DISCONTIN UE. 09/08 completed Not Available Not Available Not Available hydroxyzine HCl 10 mg tablet TAKE 1 TABLET BY MOUTH TWICE DAILY DIRECTED FOR ANXIETY active Not Available Not Available No t Available bromphenira mine-pseudo ephedrine-D M 2 mg-30 mg-10 mg/5 mL oral syrup TAKE 5 ML BY MOUTH EVERY 6 HOURS FOR COUGH active Not Available Not Available No t Available sertraline 50 mg tablet TAKE 1 TABLET BY MOUTH ONCE DAILY IN THE MORNING FOR ANXIETY FOR 30 DAYS active Not Available Not Available No t Available hydroxyzine pamoate 25 mg capsule TAKE 1 CAPSULE BY MOUTH TWICE DAILY DIRECTED FOR ANXIETY active Not Available Not Available No t Available Vitamin D3 25 mcg (1,000 unit) capsule 1 capsule every day by oral route. 11/07 completed Not Available Not Available Not Available cyclobenzap rine 5 mg tablet TAKE 1 TABLET BY MOUTH AT BEDTIME 09/08 completed Not Available Not Available Not Available nitrofurant oin monohydrate /macrocryst als 100 mg capsule TAKE 1 CAPSULE BY MOUTH TWICE DAILY FOR 5 DAYS FOR UTI active Not Available Not Available No t Available Azilect 0.5 mg tablet Take 1 tablet every day by oral route for 90 days. 2023 active Not Available Not Available Not Avai lable Vitals Date Recorded Body height Body mass index (BMI) Body weight Body temperature Oxygen saturation Oxygen saturation in Arterial blood by Pulse oximetry Heart rate Systolic blood pressure Diastolic blood pressure Provider Name and Address Organization Details Last Updated DateTime 4 162.56 cm 29.4 kg/m2 19273.3 g 96 [degF] 96 % 96 % 78 /min 124 mm[Hg] 74 mm[Hg] Nara GARCIA - [place] - [place] & [place] 4 14:07:20 Date Recorded Body height Body mass index (BMI) Body weight Body temperature Heart rate Systolic blood pressure Diastolic blood pressure Provider Name and Address Organization Details Last Updated DateTime 4 162.56 cm 29.4 kg/m2 41466.3 g 97 [degF] 77 /min 124 mm[Hg] 74 mm[Hg] Nara Chan [facility] & [place] 4 14:06:52 Date Recorded Body height Body mass index (BMI) Body weight Body temperature Oxygen saturation Oxygen saturation in Arterial blood by Pulse oximetry Heart rate Systolic blood pressure Diastolic blood pressure Provider Name and Address Organization Details Last Updated DateTime 4 162.56 cm 30 kg/m2 57504.6 6 g 97.1 [degF] 96 % 96 % 63 /min 156 mm[Hg] 88 mm[Hg] Pooja Gómez [facility] & [place] 4 09:45:32 Date Recorded Body height Body mass index (BMI) Body weight Body temperature Oxygen saturation Oxygen saturation in Arterial blood by Pulse oximetry Heart rate Systolic blood pressure Diastolic blood pressure Provider Name and Address Organization Details Last Updated DateTime 4 162.56 cm 30 kg/m2 51351.6 6 g 96.9 [degF] 98 % 98 % 77 /min 130 mm[Hg] 76 mm[Hg] Penny Albert [facility] & [place] 4 13:40:18 Date Recorded Body height Body mass index (BMI) Body weight Body temperature Oxygen saturation Oxygen saturation in Arterial blood by Pulse oximetry Heart rate Respiratory rate Systolic blood pressure Diastolic blood pressure Provider Name and Address Organization Details Last Updated DateTime 3 162.56 cm 29.4 kg/m2 87448.3 g 96.9 [degF] 96 % 96 % 71 /min 16 /min 122 mm[Hg] 74 mm[Hg] Hellen Gordon [facility] & [place] 3 09:11:25 Social History Question Answer Notes LastModified by Organizat ion Details LastModified Time Tobacco Smoking Status Former Smoker Martha Poole edwige [facility] & [place] 09/08/2022 14:18:58 Do You Have An Advance Directive? No Information not available 09/08/2022 Are You Blind Or Do You Have Difficulty Seeing? No Information not available 09/08/2022 What Was The Date Of Your Most Recent Tobacco Screening? 11/08/2023 [email or web address] Information not available 11/09/2023 Are You Passively Exposed To Smoke? No Information not available 09/08/2022 Sex: Female Functional Status Question Answer Note LastModified by Organizat ion Details LastModified Time Do you use any illicit or recreational drugs? No Information not available 09/08/2022 What is your level of alcohol consumption? None Information not available 09/08/2022 What is your exercise level? Occasional Information not available 09/08/2022 Mental Status Question Answer Note LastModified by Organization D etails LastModified Time Do you feel stressed (tense, restless, nervous, or anxious, or unable to sleep at night)? [id number] Information not available 09/08/2022 Family History Relationship Description Onset Age of this Age Resolved Age Notes LastModified by Organization Details LastModified Time Father No current problems or disability [email or web address] Not available 11/08 13:25:55 Father Disorder of endocrine system pt. added direct ly (10/31) [email or web address] Not available 11/01/2023 14:59:27 Father Myocardial infarction pt. added direct ly (10/31) [email or web address] Not available 11/01/2023 14:59:48 Mother No current problems or disability [email or web address] Not available 11/08 13:25:55 Mother Gastroesopha geal reflux disease pt. added direct ly (10/31) [email or web address] Not available 11/01/2023 15:00:03 Mother Headache pt. added direct ly (10/31) [email or web address] Not available 11/01/2023 15:00:15 Mother Osteoporosis pt. added direct ly (10/31) [email or web address] Not available 11/01/2023 15:00:41 Brother Disorder of endocrine system pt. added direct ly (10/31) [email or web address] Not available 11/01/2023 14:59:27 Maternal Grandmother Disorder of endocrine system pt. added direct ly (10/31) [email or web address] Not available 11/01/2023 14:59:27 Paternal Grandmother Disorder of endocrine system pt. added direct ly (10/31) [email or web address] Not available 11/01/2023 14:59:27 Medical History Condition Response Osteoporosis/Osteopenia Y Arthritis Y Reflux/GERD Y Gynecological History Statement/Question Response Menses Monthly N Abnormal Pap N Date of Last Pap Smear 09/27/2023 09/27/2023 Date of Last Colonoscopy 06/29/2022 Most Recent Bone Density 08/29/2023 Sexually Active? N Obstetrics History GPAL:G 0 P 0 0 0 0 Immunizations Vaccine Type Date Status Note Provider Nam e and Address Organization Details Recorded Time COVID-19, mRNA, LNP-S, PF, 30 mcg/0.3 mL dose 04/16/2021 completed Penny gibbons, [place] - [facility] [facility] & [place] 11/09/2023 13:41:25 COVID-19, mRNA, LNP-S, PF, 30 mcg/0.3 mL dose 05/08/2021 completed Penny gibbons, [place] - [place] [facility] & [place] 11/09/2023 13:41:25 Past Encounters Encounter ID Performer Location Encounter Start Date Encounter Closed Date Diagnosis/Indication Diagnosis SNOMED-CT Code Diagnosis ICD10 Code Diagnosis Note [id number] Madison Carballo DO [place] [address] [facility] [place] [address] 09/08/2022 14:08:28 09/08/2022 15:31:10 Pain in left foot 0183349990 00505 M79.672 Callosity on toe 9542771 01 L84 [id number] Madison Carballo DO [place] [address] [facility] [employer] [place] [address] 09/29/2022 13:33:17 09/29/2022 14:06:46 Pain in left foot 8658767154 63571 M79.672 Hammer toe 330133568 M20 .42 [id number] Janusz Esqueda MD [place] [address] [address] [employer] [place] [address] 08/26/2023 08:57:21 08/26/2023 10:23:28 Tremor 73258303 R25.1 Family his tory of diabetes mellitus type 2 395170070 Z83.3 Family his tory of hyperlipidemia 837515037 Z83.49 Skin lesion 80935554 L98 .9 Pain of to e of left foot 6617735396 74490 M79.675 Generalize d anxiety disorder 43517687 F41.1 [id number] Janusz Esqueda MD [address] [place] [address] [place] [address] 09/09/2023 13:55:41 09/09/2023 15:08:29 Vitamin D deficiency 91749794 E55.9 Folic acid deficiency 19 1913507 E53.8 [id number] Janusz Esqueda MD [address] [place] [address] [place] [address] 10/14/2023 13:56:45 10/14/2023 15:40:06 Low back pain 473617735 M54.50 Pain of ri ght hip joint 1380026137 32893 M25.551 Pain of le ft hip joint 1538481893 59783 M25.552 Folic acid deficiency 19 4031359 E53.8 Vitamin D deficiency 347 02781 E55.9 Tremor 64734926 R25.1 Osteoporosis 69086678 M8 1.0 Neck pain 25777430 M54.2 [id number] Kaleb Neal M.D [facility] Neurology [place] [address] [place] [address] 11/03/2023 09:24:17 11/03/2023 10:15:35 Parkinson's disease 75347761 G20.A1 Generalize d anxiety disorder 59045608 F41.1 [id number] Janusz Esqueda MD [facility] [address] [facility] [place] [address] 11/09/2023 13:21:55 11/09/2023 14:06:07 Tremor 04914463 R25.1 Parkinson's disease 4904 9000 G20.A1 [id number] BHARAT WONGt ic [facility] at [facility] [address] [place] [address] 12/12/2023 11:06:29 12/12/2023 12:10:36 [id number] BHARAT WONG [facility] at [address] [place] [address] 01/17/2024 11:52:04 01/20/2024 16:14:19 [id number] BHARAT WONG Therapeut [facility] at [address] [place] [address] 02/21/2024 12:02:05 02/26/2024 12:56:47 [id number] BHARAT WONG [facility] at [address] [place] [address] 05/22/2024 13:54:31 05/22/2024 16:17:01 [id number] BHARAT WONG [facility] at [address] [place] [address] 07/05/2024 14:52:31 07/05/2024 16:11:46 [id number] BHARAT WONG [facility] at [address] [place] [address] 09/25/2024 10:33:32 09/28/2024 18:34:51 [id number] BHARAT WONG [facility] at [address] [place] [address] 11/05/2024 11:01:59 11/08/2024 11:02:08 [id number] BHARAT WONG [facility] at [address] [place] [address] 12/27/2024 13:53:12 01/04/2025 09:01:09 [id number] BHARAT WONG [facility] at [address] [place] [address] 01/28/2025 11:37:09 01/30/2025 12:02:15 Health Concerns Section Related Observation LastModified by Organization Detai ls LastModified Time None Recorded Concern Status LastModified by Organization Details LastModified Time None Recorded Advance Directives Directive N: Payers Insurance Date Sequence Insurance Name Policy Number Policy Arellano Covered Member ID Arellano Member ID Guarantor Name 01/27/2025 1 [place]MEDICARE REPLACEMENT REGIONAL PPO) [id number] Moe Rosales [place] [id number] Moe Tonia 10/14/2023 SLIDING FEE SCHEDULE - DISCOUNT Moe Tonia 03/17/2024 1 [place] [id number] Moe [place] [id number] Moe Tonia 11/26/2021 1 [place] [id number] Moe Tonia [id number] Moe [place] 09/07/2023 1 [place] [id number] Moe [place] [id number] Moe Tonia 09/24/2024 1 [employer] (MEDICARE REPLACEMENT/A DVANTAGE - HMO) Moe L [place] [id number] Moe Tonia Notes Date Note Type Note Provider Name and Address Organization Details Recorded Time 08/26/2023 text/html Moe is a 62 yo Female who presents to clinic today for evaluation. Patient has multiple complaints. First of all patient has a tremor which has been there now for over 6 months. Patient originally had a head tremor and was seen by Neurology in the past and was told she did not have Parkinsons disease. Patient has now developed a tremor in her left upper extremity. Patient notices it more with picking up objects and using her left upper extremity. Patient has no other issues or new complaints. Patient was concerned it could be her Zoloft causing this problem. Patient also has a skin lesion on her back and left side of her face which has developed patient wants it to be evaluated. Patient has not noticed changes but has started to note some slight changes of the left side of her face. Patient continues to have left foot pain of her 5th digit. Patient had been to see podiatry in the past but had to stop going due to cost. Patient has no other issues or new complaints at this time today. Hailee Sanchez PA-C [address] [place] [address],[address], [place], [address], [facility] & [place] 08/26/2023 13:21:22 09/09/2023 text/html Moe is a 62 yo female who presents to the clinic today for evaluation. Patient has a history abnormal blood work and is here for those test results. Patient's insurance is no longer active and does not wish to do any further testing or workup today she was originally scheduled for a punch biopsy and MRI but she is going to hold on those for now. Hailee Sanchez PA-C [address] [facility],[address], [place], [address], [facility] - [place] & [place] 09/09/2023 15:12:34 10/14/2023 text/html Moe is a 62 yo female who presents to the clinic today for evaluation. Patient is here today for follow-up. She recently had an MRI of her head and is here for those test results and lab work. Patient does have some new complaints bilateral hip pain low back pain and neck pain. Patient states that nothing has seemed to make that any better or worse this time. Patient states she has not had any known injury to her back hips or neck. Patient has chronic pain in these areas from time to time with weakness in lower extremities at times as well. Patient has no other issues or new complaints. Hailee Sanchez PA-C [address] [facility],[address], [place], [address], [facility] & [place] 10/16/2023 12:48:39 11/03/2023 text/html Ms. Moe Randall i s a 62 y/o F who is referred to clinic for evaluation. Over the past 3-4 months she has noticed a resting tremor involving the left upper extremity. She also has difficulty walking and is very unsteady on her feet. She has difficulty going up and down stairs. She has had falls at home recently. She has family history of Parkinson's disease in her paternal aunt and two maternal uncles.She had MRI brain in 09/2023 which was unremarkable. Kaleb Neal M.D [address] [place] [address], [address], [place], [address], [facility] & [place] 11/03/2023 10:16:25 11/09/2023 text/html Moe is a 62 yo Female who presents to the clinic today for evaluation. Patient has a history of having a tremor. Patient was referred to Neurology and recently saw the neurologist who advised her that she does have Parkinsons disease. She was started on 2 medications and since starting that she has been having constipation. Patient has no other issues or new complaints. Patient has issues with her balance, tremor and gait. Patient did recently have an MRI completed as well which showed no acute findings. Hailee Sanchez PA-C [address] [place] [address],[address], [place], [address], [place] - [facility] - [place] & [place] 11/09/2023 15:11:33 OBGyn Episode No OBEpisode recorded.
--- OUTSIDE RECORDS SUMMARY | 2025-02-14 09:55 | XMS_ITS | Encounter Summary ---
Author Organization [facility] Address [address] [place] [address] Care Team Providers Care Piping Blocker Name Role Phone Hailee Jimenez Primary Care Provider Reason for Referral * Consultation (Routine) - Closed Specialty Diagnoses / Procedures Referred By Contcindy t Referred To Contact Neurology Diagnoses Parkinson's disease without dyskinesia or fluctuating manifestations (CMS/HCC) Hailee Jimenez PA [address] [place] [address] Phone: tel: fax: Referral ID Status Reason Start Date Expiration Date V isits Requested Visits Authorized [id number] Closed Specialty Services Required 11/14/2023 05/15/2025 1 1 Encounter Details Date Type Department Care Team (Late st Contact Info) Description 11/14/2023 Community [facility] [address] [place] [address] Hailee Jimenez PA [address] [place] [address] Parkinson's disease without dyskinesia or fluctuating manifestations (CMS/HCC) (Primary Dx) Social History Tobacco Use Types Packs/Day Years Used Date Smoking Tobacco: Never Assessed PHQ-2 Answer Date Recorded Patient Health Questionnaire-2 Score 0 11/15/2023 Comments Unknown Sex and Gender Information Value Date Recorded Sex Assigned at Not on file Legal Sex Female 7:39 PM EDT Gender Identity Not on file Sexual Orientation Not on file documented as of this encounter Functional Status * Over the past 2 weeks, how often have you been bothered by any of the following problems? Question Answer Date of Assessment Author Little interest or pleasure in doing things Not at all 11/15/2023 1:11 PM EDT Alma Rosa Feeling down, depressed, or hopeless Not at all 10/27 1:11 PM EDT Alma Rosa Patient Health Questionnaire-2 Score 0 10/27 1:11 PM EDT Alma Rosa documented as of this encounter Plan of Treatment Scheduled Referrals Name Type Priority Associated Diagnoses Orde r Schedule Ambulatory referral to Neurology Outpatient Referral Routine Parkinson's disease without dyskinesia or fluctuating manifestations (CMS/HCC) Expected: 11/14/2023 (Approximate), Expires: 05/16/2025 documented as of this encounter Visit Diagnoses Diagnosis Parkinson's disease without dyskinesia or fluctuating manifestations (CMS/HCC)- Primary documented in this encounter Care Teams Piping Blocker Relationship Specialty Start Date End Date Hailee Jimenez PA [address] [place] [address] PCP - General 11/15/23 documented as of this encounter
--- OUTSIDE RECORDS SUMMARY | 2025-02-14 09:55 | XMS_ITS | Clinical Summary ---
Author Organization [facility] Address [address] [place] [address] Care Team Providers Care Ophthalmic Technician Apprentice Name Role Phone Hailee Jimenez Primary Care Provider Allergies Active Allergy Reactions Criticality Noted Date Comments Iv Contrast Rash Low 11/15/2023 Medications carbidopa-levod opa (Sinemet) 25-100 MG tablet Take 1 tablet by mouth 3 (three) times a day. 11/03/2023 Active docusate sodium (Colace) 100 MG capsule Take 1 capsule (100 mg) by mouth 2 (two) times a day if needed for constipation . Active pantoprazole (Protonix) 40 MG EC tablet Take 1 tablet (40 mg) by mouth 1 (one) time each day. Do not crush, chew, or split. Active sertraline (Zoloft) 50 MG tablet Take 1 tablet (50 mg) by mouth 1 (one) time each day. Active calcium carbonate (Maalox) 600 MG chewable tablet Chew 1 tablet (600 mg) 1 (one) time each day. Active acetaminophen (Tylenol) 500 MG tablet Take 2 tablets (1,000 mg) by mouth every 6 (six) hours if needed for pain. Active trihexyphenidyl (Artane) 2 MG tablet Take 1 tablet (2 mg) by mouth 3 (three) times a day with meals. 270 tablet 3 08/28/2024 5 Active Family History Medical History Relation Name Comments Diabetes Brother Heart disease Father Dementia Mother Throat cancer Mother Relation Name Status Comments Brother Father Mother Social History Tobacco Use Types Packs/Day Years Used Date Smoking Tobacco: Former Cigarettes 1 1 971 - 1997 Smokeless Tobacco: Never Tobacco Cessation:Counseling Given: Not Answered Alcohol Use Standard Drinks/Week Comments Never 0 (1 standard drink = 0.6 oz pur e alcohol) PHQ-2 Answer Date Recorded Patient Health Questionnaire-2 Score 0 11/15/2023 Comments Unknown Sex and Gender Information Value Date Recorded Sex Assigned at Not on file Legal Sex Female 7:39 PM EDT Gender Identity Not on file Sexual Orientation Not on file Last Filed Vital Signs Vital Sign Reading Time Taken Comments Blood Pressure 132/81 08/28/2024 2:18 PM EST Pulse 79 08/28/2024 2:18 PM EST Temperature 36.4 C (97.6 F) 08/28/2024 2:18 PM EST Respiratory Rate - - Oxygen Saturation 97% 08/28/2024 2:18 PM EST Inhaled Oxygen Concentration - - Weight 81.5 kg (179 lb 10.8 oz) 08/28/2024 2:18 PM EST Height 165.1 cm (5' 5 ) 08/28/2024 2:18 PM EST Body Mass Index 29.9 08/28/2024 2:18 PM EST Plan of Treatment Health Maintenance Due Date Last Done Comments [facility]-Bone Density Scan 1960 [facility]-Hepatitis C Screening 1960 [facility]-Medicare Annual Wellness (AWV) 1958 [facility]-/Child/Adol SDOH Screenings 1958 [facility]- SDOH Screenings 1976 [facility]-Adult SDOH Screenings 1976 [facility]-DTaP,Tdap,and Td Vaccines (1 - Tdap) 1977 CT Colonography 12/26/2003 Colonoscopy 12/26/2003 FIT 12/26/2003 FOBT 12/26/2003 Sigmoidoscopy 12/26/2003 [facility]-Pneumococcal Vaccine: 50+ Years (1 of 1 - PCV) 2008 [facility]-Zoster Vaccines (1 of 2) 2008 [id number] Vaccine (3 - season) 2024 05/08/2021, 04/16/2021 [facility]-Depression Screening 11/14/2024 11/15/2023 [facility]-Influenza Vaccine (Season Ended) 2025 FIT-DNA 07/23/2025 07/23/2022 [facility]-Colorectal Cancer Screening 07/23/2025 [facility]-Breast Cancer Screening 10/10/202509/29, 10/10/2023, 08/27/2022, Additional history exists [facility]-RSV Vaccine: 60+ Years or (1 - 1-dose 75+ series) 2033 [facility]-Obesity Intervention Completed 08/28/2024, 10/27 HPV Vaccines Aged Out No longer eligi ble based on patient's age to complete this topic [facility]-HIB Vaccines Aged Out No longer e ligible based on patient's age to complete this topic [facility]-Hepatitis A Vaccines Aged Out No longer eligible based on patient's age to complete this topic [facility]-IPV Vaccines Aged Out No longer e ligible based on patient's age to complete this topic [facility]-Rotavirus Vaccines Aged Out No lo nger eligible based on patient's age to complete this topic Insurance [employer] MEDICARE Care Teams Ophthalmic Technician Apprentice Relationship Specialty Start Date End Date Hailee Jimenez PA [address] [place], [place] [id number] PCP - General 11/15/23
[2025-02-15 05:42] LABS: Hepatitis B Surface Antigen Negative (Negative)
== END 2025-02-13 23:59 | disposition home or self-care (01) ==
LOC: LAB.DROPOF 02-14 09:52
PROVIDERS: PCP Family Medicine; Visit Provider Family Medicine
DX: E78.5 Hyperlipidemia, unspecified (principal); Z11.59 Encounter for screening for other viral diseases; Z11.4 Encounter for screening for human immunodeficiency virus [HIV]
CPT/HCPCS: 80053; 80061; 85025; 86803; 87340; 87389

== ENCOUNTER 2025-05-17 10:42 | Outpatient (CLI) | payer MEDICARE, OTHER, SELFPAY ==
--- NOTE | 2025-05-17 10:30 | US_ITS ---
FINAL REPORT TECHNIQUE: Sonographic images of the kidneys and retroperitoneum were obtained in the longitudinal and transverse planes. CLINICAL HISTORY: ? area seen on lt kidney from prev ultrasound from outside source COMPARISON: None FINDINGS: The right kidney measures 10.6 cm in whlv-hw-dacy length. No hydronephrosis, mass, or stone. Cortical echogenicity and thickness are normal. The left kidney measures 10.8 cm in vqxa-ox-lwoq length. No hydronephrosis, mass, or stone. Cortical echogenicity and thickness are normal. Limited evaluation of the spleen demonstrates mild splenomegaly. IMPRESSION: 1. Morphologically normal kidneys bilaterally. However, if a questionable mass was noted on an imaging modality at another facility, correlation with CT or MRI would be more sensitive to evaluate a subtle renal mass. 2. Mild splenomegaly. Reviewed, Interpreted and Dictated by Juanita Harper MD Transcribed by Josefina Begum Authenticated and [facility]
--- OUTSIDE RECORDS SUMMARY | 2025-05-17 10:46 | XMS_ITS | Clinical Summary ---
Author Organization [facility] Address [address] [place] [address] Care Team Providers Care Aml Analyst Name Role Phone Hailee Jimenez Primary Care [...] 08/28/2024 2:18 PM EST Plan of Treatment Upcoming Encounters Date Type Department Care Team (Late st Contact Info) Description 11/14/2025 9:30 AM EDT Office Visit [place] [facility] [address] [place] [address] Nirmala Thomas MD [address] [place] [address] Health Maintenance Due Date Last Done Comments [facility]-Bone Density Scan 1958 [facility]-Hepatitis C Screening 1958 [facility]-Medicare Annual Wellness (AWV) 1958 [facility]-/Child/Adol SDOH Screenings 1958 [facility]- SDOH Screenings 1976 [facility]-Adult SDOH Screenings 1976 [facility]-DTaP,Tdap,and Td Vaccines (1 - Tdap) 1977 CT Colonography 12/26/2003 Colonoscopy 12/26/2003 FIT 12/26/2003 FOBT 12/26/2003 Sigmoidoscopy 12/26/2003 [facility]-Pneumococcal Vaccine: 50+ Years (1 of 1 - PCV) 2008 [facility]-Zoster Vaccines (1 of 2) 2008 [facility]-Depression Screening 11/14/2024 11/15/2023 [id number] Vaccine (3 - season) 2025 05/08/2021, 04/16/2021 [facility]-Influenza Vaccine (#1) 2025 FIT-DNA 07/23/2025 07/23/2022 [facility]-Colorectal Cancer Screening [...] patient's age to complete this topic Insurance [facility] MEDICARE Care Teams Aml Analyst Relationship Specialty Start Date End Date Hailee Jimenez PA [address] [place] [address] PCP - General 11/15/23
--- OUTSIDE RECORDS SUMMARY | 2025-05-17 10:46 | XMS_ITS | Clinical Summary ---
Author Organization [facility] Address [address] [place] [address] Care Team Providers Care Mussel Farmer Name Role Phone Logan García MD Primary Care Provider [phone] Allergies Active Allergy Reactions Criticality Noted Date Comments Contrast Dye (Echo Or Unknown Ct/Mr) Rash Low Medications Sertraline HCl (ZOLOFT PO) Take by mouth. Active predniSONE (DELTASONE) 5 MG tablet ///// as directed daily for 6 days 21 tablet 10/31/2018 Active azithromycin (ZITHROMAX Z-KAREY) 250 MG tablet Take 2 tablets the first day, then 1 tablet daily for 4 days. 6 tablet 10/31/2018 Active Family History Medical History Relation Name Comments Breast cancer Cousin 1 maternal Breast cancer Cousin 2 maternal Breast cancer Maternal Aunt 1 60'S Breast cancer Maternal Aunt 2 60'S Breast cancer Paternal Aunt great great 60's Ovarian cancer Neg Hx Relation Name Status Comments Cousin 1 maternal Cousin 2 maternal Maternal Aunt 1 Maternal Aunt 2 Paternal Aunt great Social History Tobacco Use Types Packs/Day Years Used Date Smoking Tobacco: Former Comments No Sex and Gender Information Value Date Recorded Sex Assigned at Not on file Legal Sex Female 10:45 AM EDT Gender Identity Not on file Sexual Orientation Not on file Last Filed Vital Signs Vital Sign Reading Time Taken Comments Blood Pressure 118/84 10/31/2018 10:25 AM EST Pulse 71 10/31/2018 10:25 AM EST Temperature 36.2 C (97.1 F) 10/31/2018 10:25 AM EST Respiratory Rate 16 10/31/2018 10:25 AM EST Oxygen Saturation 96% 10/31/2018 10:25 AM EST Inhaled Oxygen Concentration - - Weight 78.3 kg (172 lb 9.6 oz) 10/31/2018 10:25 AM EST Height 165.1 cm (5' 5 ) 10/31/2018 10:25 AM EST Body Mass Index 28.72 10/31/2018 10:25 AM EST Plan of Treatment Health Maintenance Due Date Last Done Comments DXA SCAN 1960 TDAP/TD VACCINES (1 - Tdap) 1977 COLON CANCER SCREENING 5 YEA R SIGMOIDOSCOPY 12/26/2003 CT COLONOGRAPHY 12/26/2003 FECAL OCCULT BLOOD TEST 12/26/2003 FIT Testing (1 year) 12/26/2003 Pneumococcal Vaccine 50+ (1 of 1 - PCV) 2008 ZOSTER VACCINE (1 of 2) 2008 ANNUAL WELLNESS VISIT 10/31/2018 HEPATITIS C SCREENING 10/31/2018 INFLUENZA VACCINE 03/29/2025 COVID-19 Vaccine (3 - 2024-2 6 season) 2025 05/08/2021, 04/16/2021 COLOGUARD 07/23/2025 07/23/2022, 06/14/2019 MAMMOGRAM 10/24/2026 10/24/2024, 09/29, 08/27/2022, Additional history exists COLONOSCOPY 06/29/2032 06/29/2022, 08/29/2020 COLORECTAL CANCER SCREENING 06/29/2032 Procedures Procedure Name Priority Date/Time Associated Diagnosis Comments MAMMO SCREENING DIGITAL TOMOSYNTHESIS BILATERAL W CAD Routine 10/24/2024 1:09 PM EST Encounter for screening mammogram for malignant neoplasm of breast from Last 3 Months or Most Recently Relevant to Health Maintenance Results * Mammo Screening Digital Tomosynthesis Bilateral With CAD (10/24/2024 1:09 PM EST) Anatomical Region Laterality Modality Breast N/A Mammography 10/26/2024 2:53 PM EST Impressions 10/26/2024 2:55 PM EST Negative bilateral mammogram. RECOMMENDATION: Continue annual screening mammography. BI-RADS CATEGORY 1, NEGATIVE. CAD was utilized. The standard false-negative rate of mammography is between 10% and 25%. Complex patterns or increased breast density will markedly elevate the false-negative rate of mammography. A letter, in lay terminology, with the results of this exam will be mailed to the patient. 10/26/2024 2:[address] Blair Hernandez MD on Narrative 10/26/2024 2:55 PM EST DIGITAL SCREENING MAMMOGRAM WITH TOMOSYNTHESIS HISTORY: Screening Mammography. Low dose full field digital breast tomosynthesis imaging was performed with 2D and 3D acquisitions consisting of bilateral CC and MLO views. Examination is compared to prior examination dating back to 12/04/2015. Examination is read in conjunction with computer aided detection. FINDINGS: There are scattered areas of fibroglandular density. No suspicious masses, microcalcifications or areas of architectural distortion are present. Dawson Madera MD IMG MAMMOGRAPHY ORDERABLE S Final Result from Last 3 Months or Most Recently Relevant to Health Maintenance Insurance [employer] PPO Care Teams Mussel Farmer Relationship Specialty Start Date End Date Logan García MD [address] [place] [address] PCP - General Family Medicine 10/24/24
--- OUTSIDE RECORDS SUMMARY | 2025-05-17 10:46 | XMS_ITS | Encounter Summary ---
Author Organization [facility] Address [address] [place] [address] Care Team Providers Care Air Intercept Controller Supervisor Name Role Phone Hailee Jimenez Primary Care Provider Reason for Referral * Consultation (Routine) - Closed Specialty Diagnoses / Procedures Referred By Contcindy t Referred To Contact Neurology Diagnoses Parkinson's disease without dyskinesia or fluctuating manifestations (CMS/HCC) Hailee Jimenez PA [address] [place] [address] Phone: tel: fax: Referral ID Status Reason Start Date Expiration Date V isits Requested Visits Authorized [id number] Closed Specialty Services Required 11/14/2023 05/15/2025 1 1 Encounter Details Date Type Department Care Team (Late st Contact Info) Description 11/14/2023 Community [facility] [address] [place] [address] Hailee Jimenez PA [address] [place] [address] Parkinson's disease without dyskinesia or [...] as of this encounter Plan of Treatment Upcoming Encounters Date Type Department Care Team (Late st Contact Info) Description 11/14/2025 9:30 AM EDT Office Visit [place] [facility] [address], [address] [place] [address] Nirmala Thomas MD [address] [place] [address] Scheduled Referrals Name Type Priority Associated Diagnoses Orde r Schedule Ambulatory referral to Neurology Outpatient Referral Routine Parkinson's disease without dyskinesia or fluctuating manifestations (CMS/HCC) Expected: 11/14/2023 (Approximate), Expires: 05/16/2025 documented as of this encounter Visit Diagnoses Diagnosis Parkinson's disease without dyskinesia or fluctuating manifestations (CMS/HCC)- Primary documented in this encounter Care Teams Air Intercept Controller Supervisor Relationship Specialty Start Date End Date Hailee Jimenez PA [address] [place] [address] PCP - General 11/15/23 documented as of this encounter
--- NOTE | 2025-05-17 11:00 | US_ITS ---
FINAL REPORT TECHNIQUE: Sonographic images of the thyroid were obtained. CLINICAL HISTORY: Recheck of left thyroid nodule // seen on previous ultrasound from outside source COMPARISON: None FINDINGS: THYROID ULTRASOUND The right thyroid gland measures 3.7 x 1.8 x 1.3 cm with a volume of 4.5 mL. The echotexture is homogeneous. No dominant mass is seen. The left thyroid gland measures 4.5 x 1.1 x 1.5 cm with a volume of 3.8 mL. The echotexture is homogeneous. There is a hypoechoic TR 4 nodule measuring 8 mm in the upper left lobe. There is an isoechoic TR 3 oval nodule in the inferior left lobe measuring up to 13 mm. IMPRESSION: Thyroid nodules as above, favor benign. Recommend 12-month follow-up per TI-RADS criteria. Reviewed, Interpreted and Dictated by Juanita Harper MD Transcribed by Destiny Potter Authenticated and [facility]
== END 2025-05-17 23:59 | disposition home or self-care (01) ==
PROVIDERS: PCP Family Medicine; Visit Provider Family Medicine
DX: E04.2 Nontoxic multinodular goiter (principal); R16.1 Splenomegaly, not elsewhere classified; N28.1 Cyst of kidney, acquired
CPT/HCPCS: 76536; 76770